=== PATIENT | female | born 1975 | race African-American/Black ===

== ENCOUNTER 2016-12-24 22:00 | Outpatient (CLI) | payer OTHER ==
[2016-12-24 22:34] VITALS: BMI 42.3
[2016-12-25] MEDS ORDERED: ACETAMINOPHEN 500 MG TABLET PO ONE (00:17)
[2016-12-25] MEDS ORDERED: HYDROXYZINE PAMOATE 50 MG CAPSULE PO ONE (00:28)
== END 2016-12-25 00:43 | disposition home or self-care (01) ==
LOC: FBC 22:00 → FBCOUT 22:00
PROVIDERS: ATTEND Obstetrics & Gynecology
DX: O47.03 False labor before 37 completed weeks of gestation, third trimester (principal); Z3A.35 35 weeks gestation of pregnancy; O09.523 Supervision of elderly multigravida, third trimester
CPT/HCPCS: 59025; A9270; G0463

== ENCOUNTER 2016-12-26 04:38 | Inpatient (IN) | payer OTHER ==
[2016-12-26] MEDS ORDERED: OXYTOCIN 10 UNITS/ML VIAL IM ONE (04:58)
--- NOTE | 2016-12-26 05:14 | PCMAN ---
OB Admission Note - History : 12 Term: 10 : 0 Abortions (S&E): 1 Livin EDC:: 12/28/16 Gestational Age (weeks): 39 Days (#/7): 5 Admit Cervical Dilation:: 10 Admit Cervical Effacement (%):: 100 Admit Station:: +3 Membrane Status: Ruptured Membranes Comment:: Pt states membranes were ruptured digitally by partner Contractions: Yes Summary of Course:: 41yo [id number], dane 12/28/16, at 39+5 admitted in labor Pt was in [facility] 12/24/16 for labor check but was 2cm with no cervical change at that time. Pt states her partner digitally ruptured her membranes which were bulging out of vagina. Pt came in and delivered precipitously in triage. Placenta also delivered. course: Advanced maternal age grand multiparity 1hr gtt elevated, 3hr testing negative desires PP BTL gbs negative pt had large gap in appts - no show from 19w to 32w - Labs Blood Type: B (+) positive Rubella Status: Immune GBS Status: Negative - Physical Exam General: Afebrile, No Acute Distress Abdomen: Obese, Other (fundus firm), No Tenderness, No Distention Genitourinary: Normal Female Genitalia, Other (no lacerations, lochia is mild) Extremities: No Tenderness - Additional Comments 41yo -12, para-10, at 39+5, with precipitous delivery of liveborn placenta also delivered, complete, with 3VC. no lacerations. Pt and are stable. Pt desires PP BTL - consent in chart, NPO after MN for procedure tomorrow.
--- NOTE | 2016-12-26 05:25 | PCMDEL ---
Delivery Note - Delivery Delivery (Date): 12/26/16 Gender: Male Presentation: Cephalic Umbilical Cord: 3 Vessel Delayed Cord Clamping:: Not Performed Placenta:: complete delivered EBL:: 100 Perineum:: Intact Comments:: Pt came into triage with ruptured membranes (by partner), fully dilated Pt delivered precipitously in bed in triage room. Placenta also delivered spontaneously. Upon my arrival, baby stable and [id number] with pt. Evaluation of pt shows intact perineum, no lacerations. Placenta is evaluated to be complete, with 3VC. Baby M 9/9 apgars.
[2016-12-26] MEDS ORDERED: OXYTOCIN IN LR 500 ML IV ONE (05:34)
[2016-12-26] MEDS ORDERED: BENZOCAINE/MENTHOL 60 APPLIC/BOT TP PRN (05:34)
[2016-12-26] MEDS ORDERED: LANOLIN 50 APPLIC/7G TUBE TP PRN (05:34)
[2016-12-26] MEDS: IBUPROFEN 800 MG TABLET PO PRN ×3 (06:34→22:59)
[2016-12-26] MEDS: OXYCODONE/ACETAMINOPHEN 5/325 MG TABLET PO PRN ×3 (06:35→18:39)
[2016-12-26 07:26] LABS: AMPHETAMINES/METHAMPHETAMINES NEGATIVE (NEGATIVE); COCAINE NEGATIVE (NEGATIVE); MARIJUANA NEGATIVE (NEGATIVE); METHADONE NEGATIVE (NEGATIVE); OPIATES NEGATIVE (NEGATIVE); TRICYCLIC ANTIDEPRESSANTS NEGATIVE (NEGATIVE)
[2016-12-26 07:51] VITALS: BMI 41.2
[2016-12-26] MEDS ORDERED: IV START KIT ONE (21:10)
[2016-12-26] MEDS ORDERED: LACTATED RINGERS 1,000 ML ONE (21:10)
[2016-12-26 22:20] LABS: HEMATOCRIT 31.3 % (37.0-47.0); HEMOGLOBIN 10.7 gm/l (12.0-16.0); MEAN CELL VOLUME 90.7 fl (81.0-99.0); MEAN CORPUSCULAR HGB CONC 34.2 g/dl (33.0-37.0); RED CELL DISTRIBUTION WIDTH 12.7 % (11.5-14.5)
[2016-12-26] MEDS: OXYCODONE HCL 5 MG TABLET PO PRN (22:59)
[2016-12-27] MEDS: OXYCODONE HCL 5 MG TABLET PO PRN ×7 (01:58→23:11)
[2016-12-27] MEDS: LACTATED RINGERS 1,000 ML IV SCH ×2 (05:39→09:24)
[2016-12-27] MEDS ORDERED: FENTANYL 100 MCG/2 ML VIAL ONE ×2 (06:45→09:34)
[2016-12-27] MEDS ORDERED: MIDAZOLAM HCL 5 MG/ML 2ML VIAL ONE (06:45)
[2016-12-27] MEDS ORDERED: MORPHINE SULFATE (DURAMORPH) 1 MG/ML 10ML AMP ONE (06:45)
[2016-12-27] MEDS ORDERED: EPHEDRINE SULFATE UD SYR 25 MG 25 MG/5 ML SYRINGE IV ONE (06:45)
[2016-12-27] MEDS ORDERED: SPINAL PROCEDURAL TRAY 1 EACH ONE (06:45)
[2016-12-27] MEDS ORDERED: OXYTOCIN 10 UNITS/ML VIAL ONE (06:45)
--- NOTE | 2016-12-27 07:29 | PDOC44 ---
- Subjective Day: 1 Reports Flatus, Reports Pain Tolerable, Reports , Reports Lochia Light, Reports Other (Pt desires PP BTL) - Objective Temp Pulse Resp BP Pulse Ox 98.3 F 76 16 100/59 12/27/16 02:04 12/27/16 02:04 12/27/16 02:04 12/27/16 02:04 Lab Results 12/26/16 21:40 WBC 11.9 H RBC 3.45 L Hgb 10.7 L Hct 31.3 L Plt Count 196 Current Medications Generic Name Dose Route Start Last Admin Trade Name Freq PRN Reason Stop Dose Admin Benzocaine/Menthol 1 applic 12/26/16 05:34 Dermoplast TP PRN PRN Patient Comfort Emollient Ointment 1 applic 12/26/16 05:34 [id number] TP PRN PRN sore nipples Lactated Ringer's 1,000 mls @ 125 mls/hr 12/26/16 19:00 12/27/16 05:39 Lactated Ringers IV 125 mls/hr .Q8H DAISY Administration Ibuprofen 800 mg 12/26/16 05:34 12/26/16 22:59 Motrin PO 800 mg Q8H PRN Administration Pain (Mild) Oxycodone HCl 5 - 10 mg 12/26/16 21:45 12/27/16 05:38 Roxicodone PO 10 mg Q3H PRN Administration Pain Oxycodone/Acetaminophen 1 - 2 tab 12/26/16 05:34 12/26/16 18:39 Percocet 5/325 PO 2 tab Q4H PRN Administration Pain (Moderate) Sodium Chloride 10 ml 12/26/16 05:34 12/27/16 05:39 Normal Saline 10ml Flush IV 10 ml PRN PRN Administration IV Flush Sodium Chloride 10 ml 12/26/16 09:00 12/26/16 12:46 Normal Saline 10ml Flush IV Not Given Q8HR DAISY - Physical Exam General: Afebrile, No Acute Distress Lungs: Clear to Auscultation Bilaterally Cardiovascular: Regular Rate and Rhythm Fundus: Firm, At Umbilicus Abdomen: No Tenderness, No Distention Disposition: Stable (For tubal ligation today. Procedure is reviewed. Pt also desires possible hernia repair if one is noted at procedure. BTL sterilization has been discussed and BTL consent is in chart. Surgical consent signed today.)
[2016-12-27] MEDS ORDERED: DIPHENHYDRAMINE HCL 50 MG/1 ML VIAL IV ONE (09:05)
[2016-12-27] MEDS ORDERED: LANOLIN 50 APPLIC/7G TUBE TP PRN (09:11)
[2016-12-27] MEDS ORDERED: OXYCODONE/ACETAMINOPHEN 5/325 MG TABLET PO PRN (09:11)
[2016-12-27] MEDS ORDERED: DOCUSATE SODIUM 100 MG CAPSULE PO PRN (09:11)
[2016-12-27] MEDS ORDERED: SENNOSIDES 8.6 MG TABLET PO PRN (09:11)
[2016-12-27] MEDS ORDERED: BENZOCAINE/MENTHOL 60 APPLIC/BOT TP PRN (09:11)
[2016-12-27] MEDS ORDERED: MAGNESIUM HYDROXIDE 30 ML UDCUP PO PRN (09:11)
--- NOTE | 2016-12-27 10:05 | OP ---
Neyda Mendoza [id number] DATE OF PROCEDURE: 12/27/2016 PREOPERATIVE DIAGNOSES: 1. after vaginal delivery. 2. Desires permanent sterilization by bilateral tubal ligation. 3. Umbilical hernia. POSTOPERATIVE DIAGNOSES: 1. after vaginal delivery. 2. Desires permanent sterilization by bilateral tubal ligation. 3. Umbilical hernia. PROCEDURE: Bilateral tubal ligation with median laparotomy and hernia repair. SURGEON: Marcellus Jesus M.D. ANESTHESIA: Spinal. ESTIMATED BLOOD LOSS: 10 mL. COMPLICATIONS: None. SPECIMENS: Bilateral fallopian tube segments. OPERATIVE FINDINGS: Include grossly normal ovaries and tubes bilaterally. There was a 2 cm umbilical hernia defect. OPERATIVE COURSE: The patient was taken to the operating room and placed under spinal anesthesia. The patient was then prepped and draped in a sterile fashion. Upon initiation of the procedure the patient complained of sensation of the scalpel and therefore 2 mL of Bupivacaine were injected locally at the umbilicus and this resolved this issue. A 2 cm transverse incision as made at the level of the umbilicus and this was dissected into the peritoneal cavity. There was a 2 cm defect noted upon entering into the peritoneal cavity and an Lorenzo retractor was then placed. The left tube was then identified and followed to its fimbriated end. A window was then made in the mesosalpinx and the proximal and distal aspect of the isthmus was then tied with 2-0 Silk suture and the middle segment was excised. The remaining open aspects of the tube were then cauterized. There was good hemostasis observed. The right tube was then grasped with Handy clamp and followed to the fimbriated end. A window was then made in the mesosalpinx and the proximal and distal aspect of the isthmus of the tube where tied with 2-0 Silk suture. The middle segment was then excised in the open aspect of the tube and then cauterized. There was good hemostasis observed. All instruments were then removed. The umbilical defect was then closed first at the level of the peritoneum with 0 Vicryl in a purse string fashion and then the fascia was then closed with 0 Vicryl in a continuous fashion as well as 2-0 Vicryl was used to reinforce this repair. The skin was then closed with 4-0 Monocryl in a continuous fashion. The patient was then recovered from anesthesia and taken to the recovery room in stable condition. JOB: [id number]
[2016-12-27] MEDS: IBUPROFEN 800 MG TABLET PO PRN ×2 (10:29→18:32)
[2016-12-27] MEDS ORDERED: FENTANYL 100 MCG/2 ML VIAL IV ONE (11:37)
[2016-12-28] MEDS: IBUPROFEN 800 MG TABLET PO PRN ×2 (03:05→12:26)
[2016-12-28] MEDS: OXYCODONE HCL 5 MG TABLET PO PRN ×4 (03:06→13:11)
[2016-12-28 03:16] VITALS: BP 119/90
[2016-12-28 06:58] LABS: HEMATOCRIT 32.2 % (37.0-47.0); HEMOGLOBIN 10.8 gm/l (12.0-16.0)
[2016-12-28] MEDS ORDERED: DIPHENHYDRAMINE HCL 25 MG CAPSULE PO ONE (08:33)
[2016-12-28] MEDS ORDERED: CALCIUM CARBONATE 500 MG TAB.CHEW PO PRN (08:34)
--- NOTE | 2016-12-28 08:52 | PDOC39B ---
Hospital Course: ADMIT DATE: 12/26/16 DISCHARGE DATE: [12/28/2016] ADMISSION DIAGNOSES: [labor] PROCEDURES: [vaginal delivery, tubal ligation] HISTORY OF PRESENT ILLNESS: 41 year old G12 T10 L9 at 39 weeks 5 days presenting with [labor] HOSPITAL COURSE: The patient [presented in active labor and precipitously delivered a viable male without complication. She requested permanent sterilization and on PPD#1 received a tubal sterilization. She is requesting discharge home today.] By day of discharge the patient is ambulating, eating, voiding, and passing flatus without difficulty. Pain is controlled and lochia is appropriate. She is [] - Physical Exam Vital Signs: Temp Pulse Resp BP Pulse Ox 97.9 F 78 18 119/90 12/28/16 07:40 12/28/16 07:40 12/28/16 07:40 12/28/16 07:40 General: Afebrile Psych/Mental Status: Mood/Affect Appropriate, Judgment/Insight Intact, Bonding Well Neurological: Grossly Intact, Alert, Oriented x 4 HEENT: Atraumatic, PERRLA, EOMI Lungs: Clear to Auscultation Bilaterally, Normal Air Movement Cardiovascular: Regular Rate and Rhythm, Normal S1, Normal S2 Breast: Soft, Skin intact, Nipples Intact Fundus: Firm, Midline, Below Umbilicus Abdomen: Normal Bowel Sounds Lochia: Moderate Rectal Exam: Deferred Extremities: Full ROM Skin: Normal Color, Warm, Dry, Intact Wound: Dressing in Place, Dressing Clean/Dry/Intact - Discharge Plan Condition: Stable Disposition: Home Instruction Forms: Vaginal Discharge Instructions Prescriptions: Oxycodone HCl/Acetaminophen [PERCOCET 5/325 MG TABLET (SHF)] 1 tab PO Q4-6H PRN #15 tab PRN Reason: Pain
[2016-12-28] MEDS ORDERED: LACTATED RINGERS 1,000 ML ONE (22:08)
--- NOTE | 2016-12-29 14:37 | SURGPATH ---
[facility] [address] [place] [id number] Patient Name: RENY MORGAN MR#: [id number] : 1975 Gender: F Specimen #: [id number] Collected: 12/27/2016 Received: 12/28/2016 Reported: 12/29/2016 Submitting Phys: CATHY MCKEON Copy To Phys: [facility] Clinical History / Pre-Operative Diagnosis: PERMANENT STERILIZATION Specimen Source / Surgical Procedure Performed: RIGHT FALLOPIAN TUBE SEGMENT, LEFT FALLOPIAN TUBE SEGMENT Interpretation: FALLOPIAN TUBES, RIGHT AND LEFT, BILATERAL TUBAL LIGATION: - NORMAL FALLOPIAN TUBES SEEN IN COMPLETE CROSS SECTION Electronically Signed Out Cheryl Weldon M.D. Gross Description: The specimen is received in a formalin filled container labeled with the patient's name and "right and left fallopian tube segments". Two cylindrical segments of forrest tissue are 1.3 x 0.5 cm and 1.8 x 0.5 cm. The shorter segment has an attached suture and is inked black. A architectural representative cross section of each is submitted in one cassette. Camilo Martinez, P.A. Microscopic Description: Both fallopian tubes are histologically unremarkable and seen in complete cross section. 1: [id number] Z30.2
== END 2016-12-28 14:12 | disposition home or self-care (01) | DRG 767 ==
LOC: FBC 04:38
PROVIDERS: ADMIT Obstetrics & Gynecology; ATTEND Obstetrics & Gynecology
PROC: 10E0XZZ Delivery of Products of Conception, External Approach (ICD-10-PCS; principal; 2016-12-26)
PROC: 0UL74ZZ Occlusion of Bilateral Fallopian Tubes, Percutaneous Endoscopic Approach (ICD-10-PCS; 2016-12-27)
PROC: 0WQF4ZZ Repair Abdominal Wall, Percutaneous Endoscopic Approach (ICD-10-PCS; 2016-12-27)
DX: O62.3 Precipitate labor (principal); O09.523 Supervision of elderly multigravida, third trimester; Z3A.39 39 weeks gestation of pregnancy; Z30.2 Encounter for sterilization; O09.43 Supervision of pregnancy with grand multiparity, third trimester; Z37.0 Single live birth; O75.89 Other specified complications of labor and delivery; K42.9 Umbilical hernia without obstruction or gangrene

== ENCOUNTER 2017-02-07 08:30 | Emergency (ER) | payer OTHER ==
--- NOTE | 2017-02-07 10:15 | US ---
LEFT LOWER EXTREMITY VENOUS ULTRASOUND HISTORY: Left leg pain, recent vaginal delivery. Sonography of the left lower extremity was performed, with a focus on the venous structures. FINDINGS: COMMON FEMORAL VEIN: Occlusive thrombus. Greater saphenous vein demonstrates partially occlusive thrombus. SUPERFICIAL FEMORAL VEIN: Occlusive thrombus. POPLITEAL VEIN: Occlusive thrombus. PROXIMAL CALF VEINS: Flow and compressibility within posterior tibial veins, nonvisualization of peroneal veins. ABNORMAL FLUID COLLECTIONS: None identified. IMPRESSION: Deep venous thrombosis with occlusion from the common femoral vein to distal popliteal vein. Findings discussed with Dr. Terrell of the Emergency Medicine clinical service on 02/07/2017 at 1009 hours.
[2017-02-07] MEDS ORDERED: WARFARIN SODIUM 5 MG TABLET ONE (10:59)
[2017-02-07] MEDS ORDERED: ENOXAPARIN SODIUM 100 MG/ML SYRINGE SUB-Q ONE (10:59)
== END 2017-02-07 11:54 | disposition home or self-care (01) ==
LOC: ED 08:30
DX: I82.4Z2 Acute embolism and thrombosis of unspecified deep veins of left distal lower extremity (principal); F17.210 Nicotine dependence, cigarettes, uncomplicated